=== PATIENT | male | born 1955 | race Caucasian/White ===

== ENCOUNTER 2016-05-17 20:51 | Emergency (ER) | payer SELFPAY ==
[~2016-05-17] VITALS: Ht 188 cm; Wt 104.3 kg
[2016-05-17 21:04] VITALS: BP 138/97; PULSE 93; RESP 12; TEMP 97.4; O2SAT 95
--- NOTE | 2016-05-17 21:04 | NUR ---
Uday montgomery in [facility] - 05/18/16 at 0344 by [email or web address] Patient left without being seen.
--- NOTE | 2016-05-17 21:04 | NUR ---
Patient triaged and placed in waiting room. VSS and patient appears in no acute distress at this time. Accompanied by SELF, awaiting available bed, and MD notified of need for MSE.
--- NOTE | 2016-05-17 21:10 | NUR ---
Note valentina in [facility] - 05/18/16 at 0343 by [email or web address] Patient triaged and placed in waiting room. VSS and patient appears in no acute distress at this time. Accompanied by SELF, awaiting available bed, and MD notified of need for MSE.
--- NOTE | 2016-05-17 22:55 | NUR ---
Patient left without being seen.
== END 2016-05-17 22:34 | disposition left against medical advice (07) ==
LOC: SED 20:51
DX: S51.811A Laceration without foreign body of right forearm, initial encounter (principal); Z53.21 Procedure and treatment not carried out due to patient leaving prior to being seen by health care provider; X58.XXXA Exposure to other specified factors, initial encounter; Y93.89 Activity, other specified; Y92.89 Other specified places as the place of occurrence of the external cause; Y99.8 Other external cause status

== ENCOUNTER 2016-05-18 10:48 | Emergency (ER) | payer BC ==
[~2016-05-18] VITALS: Ht 188 cm; Wt 104.3 kg
[2016-05-18 10:56] VITALS: BP 146/91; PULSE 79; RESP 16; TEMP 97.1; O2SAT 96
--- NOTE | 2016-05-18 11:02 | NUR ---
Patient to ER bed 8 to gown for evaluation. Side rails up. Report given to Ross APPLE.
--- NOTE | 2016-05-18 11:10 | NUR ---
ER Dr. López at bedside examining patient.
[2016-05-18] MEDS ORDERED: BACITRACIN 1 GM OINT TP ONE (11:15)
[2016-05-18] MEDS ORDERED: DIPH-TET-PERTUS Vaccine 0.5 ML VIAL (ADACEL) I.M. ONE (11:15)
--- NOTE | 2016-05-18 11:35 | NUR ---
2cm lac to right FA which occured more than 12 hours ago. Wound was scrubbed with NS soaked gauze, bacitracin applied to wound covered with bandaid.
--- NOTE | 2016-05-18 11:42 | NUR ---
Patient given written and verbal discharge instructions and verbalizes understanding. ER MD discussed with patient the results and treatment provided. Given copies of tests performed in ER. Patient in stable condition. ID arm band removed. Rx of Bacitracin given. Patient educated on pain management and to follow up with PMD. Pain Scale 0/10. Opportunity for questions provided and answered.
== END 2016-05-18 11:42 | disposition home or self-care (01) ==
LOC: SED 10:48
DX: S51.811A Laceration without foreign body of right forearm, initial encounter (principal); R03.0 Elevated blood-pressure reading, without diagnosis of hypertension; Z88.2 Allergy status to sulfonamides; X58.XXXA Exposure to other specified factors, initial encounter; Y93.89 Activity, other specified; Y92.89 Other specified places as the place of occurrence of the external cause; Y99.8 Other external cause status
CPT/HCPCS: 90715; 99283

== ENCOUNTER 2021-03-14 09:45 | Outpatient (CLI) | payer BC | END 2021-03-15 14:10 | disposition home or self-care (01) | LOC: SNM 09:45 | PROVIDERS: ATTEND Internal Medicine | DX: K81.0 Acute cholecystitis (principal) | CPT/HCPCS: 78226; A9537 ==

== ENCOUNTER 2023-12-12 11:18 | Outpatient (CLI) | payer OTHER, BC | END 2023-12-12 19:39 | disposition home or self-care (01) | LOC: SCA 11:18 | PROVIDERS: ATTEND Internal Medicine | DX: Z01.818 Encounter for other preprocedural examination (principal) | CPT/HCPCS: 93005 ==